=== PATIENT | male | born 1960 | race African-American/Black ===

== ENCOUNTER 2020-12-10 20:33 | Emergency (ER) | payer OTHER, SELFPAY ==
[2020-12-10] MEDS ORDERED: HYDROcodone/Acetaminophen 10/325 mg Tablet ONE (21:14)
[2020-12-10] MEDS ORDERED: Boostrix 0.5 ML (Tdap) VIAL ONE (21:14)
== END 2020-12-10 23:15 | disposition home or self-care (01) ==
LOC: ERS 20:33
DX: S52.201A Unspecified fracture of shaft of right ulna, initial encounter for closed fracture (principal); J45.909 Unspecified asthma, uncomplicated; W22.8XXA Striking against or struck by other objects, initial encounter
CPT/HCPCS: 25530; 90471; 90715